=== PATIENT | female | born 1980 ===

== ENCOUNTER 2018-11-19 05:48 | Inpatient (IN) | payer OTHER, SELFPAY ==
[2018-11-19 06:33] VITALS: BMI 36.5
[2018-11-19 06:45] LABS: Hemoglobin 12.3 g/dL (12.0-16.0); Mean Corpuscular HGB CONC 34.2 g/dL (32.0-36.0); Mean Corpuscular Hemoglobin 30.7 pg (27.0-31.0); Mean Corpuscular Volume 89.8 fL (78.0-98.0); Mean Platelet Volume 8.3 fL (7.4-10.4); Platelet Count 214 thou/uL (130-400); RBC Distribution Width 12.7 % (11.5-14.5); Red Blood Cell (RBC) Count 4.01 mill/uL (4.20-5.40)
--- NOTE | 2018-11-19 07:07 | PDOC.FPROB ---
FMR OB H&P: HPI - History of Present Illness Chief Complaint: scheduled repeat LTCS History of Present Illness: 38 yo who presents for repeat c/s. Prior c/s performed in [facility], [place] and was done due to failure to dilate. Primary Care Physician: Brandin FMR OB H&P: Current - Care : 3 Para: 1011 Gestational age: 39.0 Due date: 11/26/18 Dating Criteria: LMP/8.0 wk US Course/Complications: DM, Hypothyroid, BETO 1 - OB Labs Blood type: A RH: positive Antibody Screen: negative HIV: negative RPR: negative HepBsAg: negative Rubella: non-immune Quad screen: unknown Urine drug screen: not done Gonorrhea: negative Chlamydia: negative Pap Smear: ASCUS HPV negative GBS: negative H&H: 11.3/32.6 Platelets: 244 Additional labs: TSH 0.832 24 hr urine protein: 200 - First Trimester Ultrasound First trimester: No concerns. - Anatomy Survey Anatomy survey: normal FMR OB H&P: History - Past Medical History PMH: DM2, hypothyroid - OB History OB History: Prior c/s for failure to dilate. SAB requiring D&C - [employer] History [employer] History: ASCUS - Surgical History Sx History: c/s x1 D&C - Social History Social History: No tobacco, alcohol, or illicit drugs. - Family History Family History: Unremarkable. FMR OB H&P: Medications - Current Home Medications: Medication Instructions Recorded Confirmed Type Levothyroxine Sodium [Synthroid] 1 tab PO DAILY 11/19/18 11/19/18 History Pnv No.95/Ferrous Fum/Folic AC 1 tab PO DAILY 11/19/18 11/19/18 History [ Vitamin Tablet] metFORMIN [Glucophage] 1 tab PO DAILY 11/19/18 11/19/18 History Allergies/Adverse Reactions: Allergies Allergy/AdvReac Type Severity Reaction Status Date / Time No Known Allergies Allergy Verified 11/19/18 06:20 FMR OB H&P: ROS - Review of Systems General: denies: fever/chills, weight/appetite/sleep changes Eyes: denies: eye pain, vision changes ENT: denies: nasal congestion, rhinorrhea, ringing in ears Cardiovascular: denies: chest pain, palpitation Respiratory: denies: cough, congestion Gastrointestinal: denies: abdominal pain, indigestion Genitourinary (Female): denies: incontinence, dysuria Musculoskeletal: denies: pain, stiffness Neurologic: denies: numbness, syncope Integumentary: denies: itching, rash Breast: denies: lumps, bumps Endocrine: denies: cold intolerance, heat intolerance Hematologic/Lymphatic: denies: prolonged or excessive bleeding Psychological: denies: depression, anxiety FMR OB H&P: Vital Signs - Maternal Vital signs: Vital Signs - First Documented Temp Pulse Resp BP 98.3 F 105 H 20 105/67 11/19/18 06:17 11/19/18 06:17 11/19/18 06:17 11/19/18 06:17 - Heart Tones Baseline: 140 Variability: moderate Acceleration: present Deceleration: absent Category: category 1 [place] contractions every: none FMR OB H&P: Physical Exam - Physical Exam General: NAD, awake, alert and oriented HEENT: normocephalic and atraumatic, no scleral icterus Neck: supple, FROM Chest: non-tender to palpation, no lesions Heart: RRR, normal S1/S2 General: CTAB, no respiratory distress Abdomen: soft, gravid, non-tender Musculoskeletal: normal gait and station, pulses present Neurological: no tremor, no focal deficit Skin: no rash, good tugor Lymphatic: no unusual bruising or bleeding, no purpura Psychiatric: intact recent and remote memory, good judgement and insight FMR OB H&P: Results - Labs Lab results: Laboratory Results - last 24 hr 11/19/18 06:34 WBC 9.0 RBC 4.01 L Hgb 12.3 Hct 36.0 MCV 89.8 MCH 30.7 MCHC 34.2 RDW 12.7 Plt Count 214 MPV 8.3 FMR OB H&P: A/P - Problem List (1) Current Visit: Yes Status: Acute Qualifiers: Weeks of gestation: 39 weeks Qualified Code(s): Z3A.39 - 39 weeks gestation of (2) Diabetes Current Visit: Yes Status: Acute Code(s): E11.9 - TYPE 2 DIABETES MELLITUS WITHOUT COMPLICATIONS Qualifiers: Diabetes mellitus type: type 2 Diabetes mellitus fpc insulin use: without medical assistant use Diabetes mellitus complication status: without complication Qualified Code(s): E11.9 - Type 2 diabetes mellitus without complications (3) Hypothyroid Current Visit: Yes Status: Acute Code(s): E03.9 - HYPOTHYROIDISM, UNSPECIFIED Qualifiers: Hypothyroidism type: acquired Qualified Code(s): E03.9 - Hypothyroidism, unspecified Disposition: - TIUP with prior c/s: Proceed with repeat LTCS. - DM2: Accuchecks PP. will hold metformin and readjust medications as needed - Hypothyroid: Continue meds. Discussion: Date/Time: 11/19/18703 This H&P was discussed with Dr. Ramsey who agree with the above documentation and plan. Addendum - Attending - Attending Attestation Date/Time: 11/19/18 0732 I personally evaluated the patient and discussed the management with Dr. Lopez. I agree with the History, Examination, Assessment and Plan documented above with any addition or exceptions noted below.
[2018-11-19] MEDS ORDERED: Fentanyl 100 MCG/2 ML VIAL ONE (07:08)
[2018-11-19] MEDS ORDERED: MORPHINE 5 MG/10 ML PF VIAL ONE (07:09)
[2018-11-19] MEDS ORDERED: Ondansetron PF 4 MG/2 ML Vial ONE (07:09)
[2018-11-19] MEDS ORDERED: Oxytocin 10 UNITS/ML VIAL ONE (07:09)
[2018-11-19] MEDS ORDERED: ePHEDrine/0.9% NaCl/PF SYRINGE 50 mg/10 ml ONE (07:09)
[2018-11-19] MEDS ORDERED: Ketorolac Tromethamine 30 MG/ML VIAL ONE (07:09)
[2018-11-19] MEDS ORDERED: Phenylephrine HCL 10 MG/ML VIAL ONE (07:09)
[2018-11-19] MEDS ORDERED: CEFAZOLIN 2 GM in Premix Bag 1 BAG IVPB SCH (07:15)
[2018-11-19] MEDS ORDERED: Bicitra 30 ML UDCUP PO SCH (07:15)
[2018-11-19 07:22] LABS: Syphilis Antibody Nonreactive (Nonreactive); Syphilis Antibody Index 0.05 S/CO (<1.00 Non-Reactive)
[2018-11-19 07:23] LABS: HBSAg Index 0.24 S/CO (0-0.99); HIV (1/2) Antibody/Antigen Non-Reactive (NonReactive); Hep B Surf Ag Non-Reactive S/CO (NonReactive)
[2018-11-19] MEDS ORDERED: Midazolam HCl 2 mg/2 ml Vial ONE (08:50)
[2018-11-19] MEDS ORDERED: diphenhydrAMINE 50 MG/ML VIAL IVP PRN (09:20)
[2018-11-19] MEDS ORDERED: Naloxone HCl 0.4 mg/ml Vial IVP PRN ×2 (09:20)
[2018-11-19] MEDS ORDERED: Naloxone HCl 0.4 mg/ml Vial IV PRN (09:20)
[2018-11-19] MEDS ORDERED: Ondansetron PF 4 MG/2 ML Vial IVP PRN ×2 (09:20→11:25)
[2018-11-19] MEDS ORDERED: Promethazine HCl 25 MG/ML VIAL IM PRN ×2 (09:20→11:25)
[2018-11-19] MEDS ORDERED: Promethazine HCl 25 MG SUPP PR PRN (09:20)
[2018-11-19] MEDS ORDERED: Meperidine HCl/PF 25 MG/ML VIAL SLOW IVP PRN (09:20)
[2018-11-19] MEDS ORDERED: HYDROmorphone 2 MG/ML VIAL SLOW IVP PRN (09:20)
[2018-11-19] MEDS ORDERED: L&D-Morphine 4 MG/ML VIAL SLOW IVP PRN (09:20)
[2018-11-19] MEDS ORDERED: Ondansetron HCl/PF 4 MG/2 ML Vial IVP PRN (09:20)
[2018-11-19] MEDS ORDERED: Communication Order-Pharmacy FS SCH (09:30)
[2018-11-19] MEDS ORDERED: Morphine 4 MG/ML VIAL ONE (11:05)
--- NOTE | 2018-11-19 11:09 | OP ---
DATE OF PROCEDURE: 11/19/2018 PROCEDURE PERFORMED: Repeat low-transverse section. RESIDENT SURGEON: Randell Lopez MD [employer] SURGEON: Jan Rosen DO ATTENDING SURGEON: Gerardo Ramsey MD ANESTHESIA: Spinal. QUANTITATIVE BLOOD LOSS: 476 mL. PREPROCEDURAL DIAGNOSES: 1. Term intrauterine at 39.0 weeks. 2. History of prior x1. 3. History of D and C due to incomplete . 4. Pregestational diabetes. 5. Hypothyroidism. 6. Advanced maternal age. POSTPROCEDURE DIAGNOSES: 1. Term intrauterine , delivered. 2. History of prior x1. 3. History of D and C due to incomplete . 4. Pregestational diabetes. 5. Hypothyroidism. 6. Multiple fundal uterine fibroids. 7. Advanced maternal age. INDICATIONS: Ms. Dove is a pleasant 38-year-old 3, para 1-0-1-1 at 39.0 weeks, who presented for repeat low-transverse section. She had a previous in [facility] indicated for failure to dilate. course was complicated by well controlled pregestational diabetes on metformin. The patient has elected to undergo repeat section. PROCEDURE IN DETAIL: The patient provided informed consent after risks, benefits, and alternatives were explained. Preprocedure antibiotics of cefazolin 2 g IV were given. The patient was taken to the operating room and spinal anesthesia was initiated. She was placed in the supine position with left lateral tilt and prepped and draped in the usual sterile fashion. Pfannenstiel incision was made with a scalpel, which was then sharply carried down to the fascia, which was sharply nicked. Subcutaneous bleeders were addressed with the Bovie cautery at this time. The subcutaneous fat was dissected off the fascia and the fascial incision was extended in the curvilinear fashion using Wren scissors. The superior and inferior edges of the fascia were elevated and the underlying rectus muscle was dissected free from the fascia. The hemostats were used to separate the rectus muscles. Peritoneum was then entered digitally. The lower portion of the midline rectus muscle and peritoneum were divided using Bovie cautery before the rectus and peritoneal layers were extended manually. An Hugo O retractor was placed providing optimal visualization of the lower uterine segment. The low transverse score was made with a fresh scalpel, which was then carried down in the midline. The uterus was entered digitally. Hysterotomy was then extended in the caudocranial fashion. Clear fluid was noted at this time. Head was manually elevated to the hysterotomy and the infant and the rest of the body were easily delivered through the fundus at 0806 hours. Delayed cord clamping was utilized before the infant was handed off to the awaiting resuscitative team. Cord blood was collected for routine analysis. The placenta was then manually extracted. Uterus was exteriorized and was curetted x2 with dry laparotomy sponges. Primary hysterotomy closure was performed using a #1 Monocryl in a running locking fashion. A second imbricating layer was performed using a running vertical mattress suture using # 1 Monocryl. Three small nonhemostatic areas were noted along the middle hysterotomy, which were dressed with three [id number] sutures using #1 Monocryl. Uterus was internalized and inspected again. The abdomen was irrigated and the hysterotomy was noted to be hemostatic. An Hugo O retractor was removed and the peritoneum was reapproximated using a 3-0 Vicryl stitch in the running fashion. Rectus muscles were inspected and all bleeding vessels were addressed with the Bovie cautery. The fascia was reapproximated using 0 PDS in a running nonlocking fashion. Subcutaneous tissues were irrigated and bleeding vessels were addressed with the Bovie. The skin was reapproximated using a 4-0 Monocryl subcuticular stitch and Dermabond was applied over the incision. Counts were correct x3. The patient tolerated the procedure well and went to the recovery room for routine care. FINDINGS: 1. Grossly normal viable male , born at 0806 hours with Apgars of 8 and 9. The infant did require blow-by oxygen during the initial transition to life. 2. Quantitative blood loss, 476 mL. 3. Grossly normal intact placenta with three-vessel cord discarded. 4. Multiple fundal uterine fibroids, largest of which was approximately 2 cm in diameter. 5. Minimal abdominal adhesions. Dr. Ramsey was present for the entire procedure. Job ID: [id number] [facility]
[2018-11-19] MEDS ORDERED: Adacel (T-DAP) 0.5 ML SYRINGE IM ONE (11:25)
[2018-11-19] MEDS ORDERED: hydrALAZINE 20 MG/ML VIAL SLOW IVP PRN (11:25)
[2018-11-19] MEDS ORDERED: NS / Oxytocin 40 units/1000ml 1,000 ML IV SCH (11:25)
[2018-11-19] MEDS ORDERED: Measles/Mumps/Rubella 10 MCG/0.5 ML VIAL SC ONE (11:25)
[2018-11-19] MEDS: Ketorolac Tromethamine 30 MG/ML VIAL IVP PRN ×2 (17:40→23:05)
[2018-11-19] MEDS: Simethicone Chewable 80 MG TAB PO PRN (17:41)
[2018-11-19] MEDS: Ferrous Sulfate 325 MG TAB PO SCH (17:41)
[2018-11-19] MEDS ORDERED: HYDROcodone/Acetaminophen 5/325 mg Tablet PO PRN (21:30)
[2018-11-20] MEDS ORDERED: Sodium Chloride 0.9% 10 ML ONE (06:11)
[2018-11-20] MEDS: Ketorolac Tromethamine 30 MG/ML VIAL IVP PRN (06:20)
[2018-11-20 06:48] LABS: Hemoglobin 10.6 g/dL (12.0-16.0); Mean Corpuscular HGB CONC 34.1 g/dL (32.0-36.0); Mean Corpuscular Hemoglobin 31.1 pg (27.0-31.0); Mean Corpuscular Volume 91.4 fL (78.0-98.0); Mean Platelet Volume 8.2 fL (7.4-10.4); Platelet Count 180 thou/uL (130-400); RBC Distribution Width 12.7 % (11.5-14.5); Red Blood Cell (RBC) Count 3.39 mill/uL (4.20-5.40); White Blood Cell (WBC) Count 12.4 thou/uL (4.8-10.8)
[2018-11-20] MEDS: Ferrous Sulfate 325 MG TAB PO SCH ×2 (08:11→17:28)
[2018-11-20] MEDS: Docusate Calcium (SURFAK) 240 MG CAP PO SCH ×3 (08:11→22:02)
[2018-11-20] MEDS: HYDROcodone/Acetaminophen 5/325 mg Tablet PO PRN ×2 (09:39→17:51)
--- NOTE | 2018-11-20 11:46 | PDOC.PP ---
Post Progress Note Post Day #: 1 Subjective: 38 yo PP day 1 s/p rLTCS. Pt doing well, pain currently controlled. No fever, chills. Ambulating tolerating po and passing flatus. PO intake tolerated: yes Flatus: yes Ambulation: yes Vital Signs (12 hours) Temp Pulse Resp BP Pulse Ox 11/20/18 08:00 98.4 F 84 18 115/53 L 98 11/20/18 04:20 97.9 F 78 17 105/60 11/20/18 00:00 98.1 F 85 17 105/59 L Weight Weight 93.44 kg - Physical Examination General: NAD Cardiovascular: no m/r/g, RRR Respiratory: clear to auscultation bilaterally, non-labored breathing Abdominal: + bowel sounds, no distention, appropriately TTP Skin: CS incision dry & intact, no rash Neurological: no gross focal deficits Psychiatric: normal affect Result Diagrams: 11/20/18 06:10 Additional Labs: Post Labs Blood Type A POSITIVE 11/19/18 06:58 Hep Bs Antigen Non-Reactive S/CO (NonReactive) 11/19/18 06:34 (1) Status post repeat low transverse section Code(s): Z98.891 - HISTORY OF UTERINE SCAR FROM PREVIOUS SURGERY Status: Acute - Assessment/Plan 1) rLTCS - PP day 1 - pt doing well and pain controlled currently - cont to monitor pain and vs - Hgb to 10.6 from 12, will cont to monitor vs. Currently asymptomatic and not tachycardic, QBL 467 Addendum - Attending - Attending Attestation Date/Time: 11/20/18 1222 I personally evaluated the patient and discussed the management with Dr. Rosen. I agree with the History, Examination, Assessment and Plan documented above with any addition or exceptions noted below.
[2018-11-20] MEDS: Ibuprofen 800 MG TAB PO SCH ×2 (14:02→22:02)
[2018-11-20] MEDS: Simethicone Chewable 80 MG TAB PO PRN (17:49)
[2018-11-21] MEDS: Ibuprofen 800 MG TAB PO SCH ×2 (06:26→14:20)
[2018-11-21] MEDS: Ferrous Sulfate 325 MG TAB PO SCH (07:11)
[2018-11-21] MEDS: Docusate Calcium (SURFAK) 240 MG CAP PO SCH (08:50)
--- NOTE | 2018-11-21 09:25 | PDOC.PP ---
Post Progress Note Post Day #: 2 Subjective: 38 yo ->2011 pp day 2 s/p rLTCS. Pt reports she is doing well and has no complaints today. She is ready to go home. PO intake tolerated: yes Flatus: yes Ambulation: yes Weight Weight 93.44 kg - Physical Examination General: NAD Cardiovascular: no m/r/g, RRR Respiratory: clear to auscultation bilaterally, non-labored breathing Abdominal: + bowel sounds, no distention, appropriately TTP Skin: CS incision dry & intact, no rash Neurological: no gross focal deficits Psychiatric: normal affect Result Diagrams: 11/20/18 06:10 Additional Labs: Post Labs Blood Type A POSITIVE 11/19/18 06:58 Hep Bs Antigen Non-Reactive S/CO (NonReactive) 11/19/18 06:34 (1) Status post repeat low transverse section Code(s): Z98.891 - HISTORY OF UTERINE SCAR FROM PREVIOUS SURGERY Status: Acute - Assessment/Plan 1) rLTCS - PP day 2 - pt doing well and pain well controlled, last narcotic pain medicine use yesterday - will plan for dc to home today with f/u in 1-2 weeks for wound check Addendum - Attending - Attending Attestation Date/Time: 11/21/18 1058 I personally evaluated the patient and discussed the management with Dr. Rosen. I agree with the History, Examination, Assessment and Plan documented above with any addition or exceptions noted below.
[2018-11-21 09:28] VITALS: BP 110/61; TEMP 98.2
== END 2018-11-21 17:00 | disposition home or self-care (01) | DRG 788 ==
LOC: L&D 05:48 → 3SW 11:39
PROVIDERS: ADMIT Emergency Medicine; ATTEND Emergency Medicine
PROC: 10D00Z1 Extraction of Products of Conception, Low, Open Approach (ICD-10-PCS; principal; 2018-11-19)
DX: O24.32 Unspecified pre-existing diabetes mellitus in childbirth (principal); O99.284 Endocrine, nutritional and metabolic diseases complicating childbirth; E03.9 Hypothyroidism, unspecified; O34.13 Maternal care for benign tumor of corpus uteri, third trimester; D25.9 Leiomyoma of uterus, unspecified; O99.89 Other specified diseases and conditions complicating pregnancy, childbirth and the puerperium; N73.6 Female pelvic peritoneal adhesions (postinfective); E11.9 Type 2 diabetes mellitus without complications; Z3A.39 39 weeks gestation of pregnancy; Z37.0 Single live birth
CPT/HCPCS: 36415; 36416; 51702; 85027; 86780; 86850; 86900; 86901; 87340; 87389; J0690; J1885; J2250; J2270; J2274; J2370; J2405; J2590; J3010